=== PATIENT | female | born 1975 | race Caucasian/White ===

== ENCOUNTER → 2017-05-23 | Outpatient (CLI) | payer OTHER | END | disposition home or self-care (01) | LOC: C.LABBFT 15:21 | PROVIDERS: ATTEND Nurse Practitioner | DX: R39.9 Unspecified symptoms and signs involving the genitourinary system (principal) ==

== ENCOUNTER → 2017-05-30 | Outpatient (CLI) | payer OTHER ==
[2017-05-30 12:46] LABS: BLOOD UREA NITROGEN 12 mg/dl (7-18); CALCIUM 8.8 mg/dl (8.5-10.1); CARBON DIOXIDE 25 mmol/L (21-32); GLUCOSE 86 mg/dl (70-99); POTASSIUM 4.1 mmol/L (3.5-5.1); SODIUM 138 mmol/L (136-145)
[2017-05-30 12:56] LABS: CHOLESTEROL 168 mg/dl (0-200); LDL CHOLESTEROL CALCULATED 108 mg/dl
== END | disposition home or self-care (01) ==
LOC: C.LABBFT 09:00
PROVIDERS: ATTEND Nurse Practitioner
DX: E55.9 Vitamin D deficiency, unspecified (principal); Z13.220 Encounter for screening for lipoid disorders; Z13.228 Encounter for screening for other metabolic disorders; R53.83 Other fatigue

== ENCOUNTER → 2017-06-14 | Outpatient (CLI) | payer OTHER | END | disposition home or self-care (01) | LOC: C.LABSPEC 13:37 | PROVIDERS: ATTEND Physician Assistant | DX: N89.8 Other specified noninflammatory disorders of vagina (principal) ==

== ENCOUNTER → 2017-07-26 | Outpatient (CLI) | payer OTHER ==
--- NOTE | 2017-07-28 07:48 | MAMMOGRAPHY REPORT ---
BILATERAL FIRST EVER DIGITAL SCREENING MAMMOGRAM TOMOSYNTHESIS WITH CAD: 07/26/2017 CLINICAL HISTORY: Baseline examination. TECHNIQUE: Breast tomosynthesis in addition to standard 2D mammography was performed. Current study was also evaluated with a Computer Aided Detection (CAD) system. COMPARISON: No prior exams were available for comparison. BREAST COMPOSITION: The tissue of both breasts is almost entirely fatty. FINDINGS: No suspicious mass, architectural distortion or cluster of microcalcifications is seen. IMPRESSION: ACR BI-RADS CATEGORY 1: NEGATIVE There is no mammographic evidence of malignancy. A 1 year screening mammogram is recommended. The pa tient will receive written notification of the results. Approximately 10% of breast cancers are not detected with mammography. A negative mammographic report should not delay biopsy if a clinically suggestive mass is present. Consuelo richmond/pratibha:07/26/2017 16:30:50 [employer] Shop Supervisor: Kelly KIDD([place])([place]), [facility] letter sent: Normal 1/2 BI-RADS Code: ACR BI-RADS Category 1: Negative
== END | disposition home or self-care (01) ==
LOC: C.MAMM 15:04
PROVIDERS: ATTEND Obstetrics & Gynecology
DX: Z12.31 Encounter for screening mammogram for malignant neoplasm of breast (principal)

== ENCOUNTER → 2017-09-05 | Outpatient (CLI) | payer OTHER | END | disposition home or self-care (01) | LOC: C.PAPS 12:43 | PROVIDERS: ATTEND Nurse Practitioner | DX: Z12.4 Encounter for screening for malignant neoplasm of cervix (principal) ==

== ENCOUNTER → 2017-09-12 | Outpatient (CLI) | payer OTHER ==
--- NOTE | 2017-09-12 09:15 | DIAGNOSTIC IMAGING REPORT ---
PELVIC COMPLETE NON OB HISTORY: 42 years-old Female N92.0 Menorrhagia with regular cycle symptoms are acute in nature. COMPARISON: CT abdomen and pelvis 01/18/2007 TECHNIQUE: Multiple real-time sonographic images of the deep pelvic structures were obtained transabdominally and transvaginally assessing grayscale appearance, color and spectral flow FINDINGS: TRANSABDOMINAL: Anteflexed uterus measures 9.4 x 5.9 x 5.9 cm. Endometrium measures 0.7 cm. Focal area of decreased echogenicity within the uterine fundus suggesting uterine fibroid. Left ovary measures 4.0 x 2.7 x 2.6 cm demonstrates arterial inflow and venous outflow. Follicles of the left ovary are noted with a 1.4 cm dominant follicle noted. Right ovary obscured by bowel gas. TRANSVAGINAL: Hypoechoic heterogenous structure of the mid myometrial uterus anteriorly measures up to 1.1 cm with internal vascularity suggesting fibroid. 1.1 cm fundal fibroid is noted within the proximity to the fundal endometrium. Ovaries are not seen transvaginally. No significant free pelvic fluid. IMPRESSION: 1. Fibroid uterus with 1.1 cm fundal leiomyoma within close proximity to the adjacent endometrium suggesting a sub-endometrial or myometrial location. 2. 1.4 cm dominant left ovarian follicle without evidence of ovarian torsion. 3. Nonvisualization of the right ovary. The above report was generated using voice recognition software. It may contain grammatical, syntax or spelling errors. Electronically signed by: Damaso Frias M.D. 09/12/2017 9:14 AM Dictated Date/Time: 09/12/2017 8:23 AM
== END | disposition home or self-care (01) ==
LOC: C.ULTR 07:34
PROVIDERS: ATTEND Nurse Practitioner
DX: D25.9 Leiomyoma of uterus, unspecified (principal); N92.0 Excessive and frequent menstruation with regular cycle

== ENCOUNTER → 2017-12-09 | Outpatient (CLI) | payer OTHER ==
[~2017-12-09] MED LIST: FEXO5TAB2 PO; HYDR-5688 PO; IBUP-103 PO
== END | disposition home or self-care (01) ==
LOC: C.LABSPEC 13:38
PROVIDERS: ATTEND Obstetrics & Gynecology
DX: N76.0 Acute vaginitis (principal)

== ENCOUNTER 2019-07-02 08:08 | Observation (INO) ==
--- NOTE | 2019-06-08 13:57 | PAT Medication Instructions ---
Medication Instructions Date of Service June 08, 2019 Home Medications lisinopril 10 mg tablet 10 mg PO QAM dicyclomine 10 mg capsule 10 mg PO TID PRN omeprazole magnesium 20 mg tablet,delayed release 20 mg PO QAM fexofenadine-pseudoephedrine ER 180 mg-240 mg tablet,ext.release 24 hr 1 tab PO QAM DO NOT take the morning of surgery lisinopril 10 mg tablet 10 mg PO QAM dicyclomine 10 mg capsule 10 mg PO TID PRN fexofenadine-pseudoephedrine ER 180 mg-240 mg tablet,ext.release 24 hr 1 tab PO QAM Take morning of surgery With a small sip of water, OTHERWISE NOTHING TO EAT OR DRINK AFTER MIDNIGHT: omeprazole magnesium 20 mg tablet,delayed release 20 mg PO QAM Other Notes If you have any questions please call us at [phone] or [phone] or [phone] or [phone]
--- NOTE | 2019-06-11 11:42 | Anesthesiology Consultation ---
Date of Service June 11, 2019 Assessment & Plan (1) Encounter for pre-operative examination: - Check test AM DOS Chart Review Chart Review: Acceptable Risk for Surgery and Patient seen in Pre Admission Testing Teaching & Discussion Pre-Anesthesia Teaching/Discussion Notes: Instructed NPO after midnight before surgery,except medications with 15 cc of water. Medication instructions provided according to the PAT guidelines. History Surgery Operation Date: 07/02/19 11:35 Proposed Procedures p Robotic Total Laparoscopic Hysterectomy - Aryan Baldwin MD, FACOG Height/Weight Height: 5 ft 7 in Weight: 134.5 kg Allergies Allergy/AdvReac Type Severity Reaction Status Date / Time amoxicillin Allergy Intermediate Rash Verified 06/11/19 10:55 Penicillins Allergy Intermediate Rash Verified 06/11/19 10:55 miconazole Allergy Mild Redness, Verified 06/11/19 13:09 [From Neosporin AF] pruritus Sulfa (Sulfonamide Allergy Unknown Rash Verified 06/11/19 13:09 Antibiotics) ciprofloxacin [From Cipro] AdvReac Mild GI upset Verified 06/11/19 13:09 clindamycin AdvReac Mild N/V Verified 06/11/19 13:09 Medications Home Medications Medication Instructions Recorded Confirmed Last Taken lisinopril 10 mg tablet 10 mg PO QAM #30 tab 12/04/18 06/11/19 Unknown dicyclomine 10 mg capsule 10 mg PO TID PRN #90 cap 01/02/19 06/11/19 Unknown omeprazole magnesium 20 mg 20 mg PO QAM 01/02/19 06/11/19 Unknown tablet,delayed release fexofenadine-pseudoephedrine ER 1 tab PO QAM 05/28/19 06/11/19 Unknown 180 mg-240 mg tablet,ext.release 24 hr Past Medical History Medical History Abnormal uterine bleeding (AUB) Anemia Environmental allergies Gastroesophageal reflux disease controlled Hypertension Irritable bowel syndrome Morbid obesity Recurrent UTI Exercise / Class Metabolic Activity III < 4 Walking/Shop/Light housework Past Family History Family History Father Asthma Heart disease Diabetes Hypertension Kidney disease Prostate cancer Mother Diabetes Hypertension Neoplasm of cervix Grandmother (Maternal) Uterine cancer Bladder cancer Grandfather (Paternal) Myocardial infarction Past Surgical History Surgical History History of bladder surgery bladder stone removal (2000) History of wisdom tooth extraction Past Anesthesia History No Hx of Anesthesia Complications (except PONV) and No Family Hx of Anesthesia Complications History of PONV History of PONV and Hx of Motion Sickness Social History Smoking Status: Never smoker Do You Dip or Chew Tobacco: No Hx Alcohol Use: Yes alcohol intake frequency: holidays/special occasions only Hx Substance Use: No substance use type: does not use Review of Systems Reflux controlled. Seasonal allergies. Patient denies chest pain, shortness of breath, wheezing, palpitations. Physical Exam Vital Signs VITALS BP 114/72 P 68 TEMP 98.3 SP02 96%RA RESP 18 PHYSICAL Full neck and c-spine range of motion. Full TMJ range of motion. TMD 3.5 finger breaths Mallampati Score 2 Dentition: missing molars, crowns on molars Lungs: clear throughout to auscultation Cardiac: regular rate and rhythm, no murmurs noted Spine: normal Carotid arteries: negative bruit Extremities: no edema Testing Laboratory Results 06/11/19 11:55 06/11/19 11:55 Blood Type A Positive 06/11/19 11:55 Antibody Screen NEGATIVE 06/11/19 11:55 Electrocardiogram Date: 12/28/18 SR at 73bpm. *unconfirmed report*
[2019-06-11 12:32] LABS: Basophils # (auto) 0.03 K/uL (0-0.2); Basophils % (auto) 0.4 %; Eosinophils % (auto) 1.4 %; Hematocrit (blood only) 35.5 % (37-47); Hemoglobin 11.8 g/dL (12.0-16.0); Immature Granulocytes # (auto) 0.01 K/uL (0.00-0.02); Immature Granulocytes % (auto) 0.1 %; Lymphocytes # (auto) 2.15 K/uL (1.2-3.4); Lymphocytes % (auto) 31.1 %; Mean Corpuscular Hemoglobin 29.1 pg (25-34); Mean Corpuscular Hgb Conc 33.2 g/dL (32-36); Mean Corpuscular Volume 87.7 fL (80-100); Mean Platelet Volume 10.6 fL (7.4-10.4); Monocytes # (auto) 0.46 K/uL (0.11-0.59); Monocytes % (auto) 6.6 %; Neutrophils # (auto) 4.17 K/uL (1.4-6.5); Neutrophils % (auto) 60.4 %; Platelet Count 288 K/uL (130-400); RDW Coefficient of Variation 13.7 % (11.5-14.5); RDW Standard Deviation 44.4 fL (36.4-46.3); Red Blood Count 4.05 M/uL (4.2-5.4); White Blood Count 6.92 K/uL (4.8-10.8)
[2019-06-11 12:46] LABS: Calcium 8.6 mg/dl (8.5-10.1); Creatinine Clr Calc Pharmacy 151.3 ml/min; Est GFR (African American) 123.3; Est GFR (Non-African American) 106.4; Potassium 4.1 mmol/L (3.5-5.1)
[~2019-07-02 08:08] MED LIST changes: +CIPROFLOXACIN / D5W 400 MG/200 ML BAG IV SCH; -FEXO5TAB2 PO; -HYDR-5688 PO; -IBUP-103 PO; +LACTATED RINGER'S 1,000 ML IV SCH; +LR 15ML/HR IV SCH; +metroNIDAZOLE 500 MG/100 ML BAG IV SCH
[2019-07-02] MEDS ORDERED: ONDANSETRON INJ 2 MG/ML 2 ML VIAL ONE (08:42)
[2019-07-02] MEDS ORDERED: PROPOFOL IV EMULSION 10 MG/ML 20 ML VIAL IV ONE (08:42)
[2019-07-02] MEDS ORDERED: LIDOCAINE HCL 2% 2 ML VIAL/AMP(20MG/ML) INFIL ONE (08:42)
[2019-07-02] MEDS ORDERED: DEXAMETHASONE SOD INJ 4 MG/ML VIAL ONE (08:42)
[2019-07-02] MEDS ORDERED: fentaNYL citrate 100 MCG/2 ML VIAL ONE ×2 (08:42→08:43)
[2019-07-02] MEDS ORDERED: MIDAZOLAM HCL 1 MG/ML 2ML VIAL ONE (08:43)
--- NOTE | 2019-07-02 09:33 | History & Physical Bridge Note ---
Date of Service July 02, 2019 History & Physical Bridge Note I have examined the patient, reviewed the History & Physical and in the interval since the performance of the History & Physical I have noted the following changes of clinical significance: no changes noted
[2019-07-02] MEDS ORDERED: BUPIVACAINE 0.5 % 5 MG/1 ML MPF 30ML VIAL ONE (09:38)
[2019-07-02] MEDS ORDERED: ISOSULFAN BLUE 10 MG/ML VIAL 5 ML ONE (09:38)
[2019-07-02] MEDS ORDERED: METOCLOPRAMIDE HCL INJ 5 MG/ML 2 ML VIAL IV PRN (09:51)
[2019-07-02] MEDS ORDERED: ONDANSETRON INJ 2 MG/ML 2 ML VIAL IV PRN ×2 (09:51→13:31)
[2019-07-02] MEDS ORDERED: ATROPINE SULFATE 0.1 MG/ML 10ML SYR IV PRN (09:51)
[2019-07-02] MEDS ORDERED: PROMETHAZINE HCL 12.5 MG in SODIUM CHLORIDE 0.9% 50 ML IV PRN ×2 (09:51→13:31)
[2019-07-02] MEDS ORDERED: ePHEDrine sulfate 50 MG/ML AMP IV PRN (09:51)
[2019-07-02] MEDS ORDERED: HYDROmorphone INJ 2 MG/ML SYR/VIAL IV PRN (09:51)
[2019-07-02] MEDS ORDERED: HYDROmorphone INJ 2 MG/ML SYR/VIAL ONE (09:58)
[2019-07-02] MEDS ORDERED: ACETAMINOPHEN 1000 MG/100 ML IV IV ONE (09:58)
[2019-07-02] MEDS ORDERED: NEOSTIGMINE METHYLSULFATE 5 MG/5 ML SYR ONE (10:58)
[2019-07-02] MEDS ORDERED: GLYCOPYRROLATE 0.2 MG/ML VIAL ONE (10:58)
[2019-07-02] MEDS ORDERED: ROCURONIUM BROMIDE 10 MG/ML 5 ML VIAL ONE (10:58)
[2019-07-02] MEDS ORDERED: KETOROLAC 30 MG/ML VIAL ONE (10:58)
[2019-07-02] MEDS ORDERED: TISSEEL FIBRIN SEALANT 4ML TOP ONE (11:38)
--- NOTE | 2019-07-02 12:04 | Operative Report ---
PG Post Operative Report Pre & Post Diagnosis Operation Date: 07/02/19 09:30 Pre-Op Diagnosis: Abnormal Uterine Bleeding Post-Op Diagnosis: Abnormal Uterine Bleeding I identified the patient and participated in the time-out.: Yes Procedure Operation Date: 07/02/19 09:30 Actual Procedures p Robotic Total Laparoscopic Hysterectomy, bilateral salpingectomy, Cystoscopy(Not Applicable) - Aryan Baldwin MD, FACOG Surgeon Aryan Baldwin MD, FACOG Clinical Academic Allergist none Estimated Blood Loss 30 Findings Consistent with Post-Op Diagnosis Specimens uterus, cervix, tubes Description of Procedure Patient was given a general anesthetic, prepped and draped in dorsal lithotomy position in yellow fin cony stirrups. Care was taken to position the legs and arms properly with no excess pressure on any area. Pre-operative antibiotics were given and SCDs applied earlier. Junior catheter was inserted into her bladder, V-Care manipluator was placed in the uterus and sutured in place. Gloves were changed and then a supra-umbilical incision was made with scalpel, using Yasmeen technique, we dissected through the subcutaneous fat, fascia, split the rectus muscles and then entered the peritoneal cavity.. Blunt tip Yasmeen Trochar then inserted and balloon inflated to stabilize the port. CO2 gas was then used to insufflate the peritoneal cavity. Findings. normal pelvis and adnexa, appendix Deep trendelenberg position was obtained. 2 robotic ports were then placed, one on the left, one on the right side under direct visualization. 11mm bladeless accessory port placed in left upper quadrant under direct visualization. Robot docked. Arm #1 Monopolar dinh, arm #2 Bipolar [place] grasper. Fallopian tubes were identified and removed with the monoplar dinh and removed thru the accessory port. Ureter was identified on each side and followed a normal course. Distal to the left ovary, the blood supply was coagulated with the bipolar [place] and then cut with Dinh. We were well away from the ureter. Round ligament was coagulated and then cut. Uterine vessels were then skeletonized, bladder flap was sharply dissected away with dinh. Uterine vessels were then coagulated close to the cervix staying away from the left ureter. Vessels then cut. The exact same process was repeated on the right side taking note of the location of the right ureter at all times. Colpotomy was then performed with the monopolar dinh, once completed, the specimen was removed through the vagina. A sponge in a glove was then placed in the vagina to maintain pneumoperitoneum. Instrument exchange then occurred. Arm #1 became the MANNY needle class b truck driver, Arm # 2 became the Cobra Grasper. 12 inch 2-0 V-Lock 90 day suture was placed through the accessory port. Cuff was closed from left to right, then back taking at least 1cm full thickness bites of vaginal mucosa. Suture was cut so there was no tail, needle removed through the accessory port. Sponge removed from the vagina and seal air tight. I noticed a break in the suture at this point, so we re-sewed the cuff with another 2-0 90 day V-lock suture. Seal was airtight Generous irrigation and suction, hemostasis excellent, Tisseal applied to pedicles. Cystoscopy performed and no injury to the bladder, no sutures noted, good strong jets of blue colored dye were noted from both right and left ureter openings. Cystoscope removed and a new junior catheter placed. Robot undocked, instruments, ports removed. gas allowed to escape. Incisions injected with Marcaine, fascia closed in the umbilical and a deep stitch into the accessory port with 0-Vicryl. 4-0 subcuticular skin closures on all incisions, dermabond applied. Sponge and instrument counts correct. I attest to the content of the Intraoperative Record and any orders documented therein. Any exceptions are noted below.
[2019-07-02] MEDS: fentaNYL citrate 100 MCG/2 ML VIAL IV PRN ×4 (12:30→12:45)
[2019-07-02] MEDS ORDERED: IBUPROFEN 600 MG TAB PO PRN (13:31)
[2019-07-02] MEDS ORDERED: bisacodyL 10 MG SUPP PR PRN (13:31)
[2019-07-02] MEDS ORDERED: OXYCODONE/ACETAMINOPHEN 5mg/325mg TAB PO PRN ×2 (13:31)
[2019-07-02] MEDS ORDERED: MEPERIDINE HCL 50 MG/ML CARP IV PRN (13:31)
[2019-07-02] MEDS ORDERED: MAGNESIUM HYDROXIDE SUSP 30 ML UDC PO PRN (13:31)
[2019-07-02] MEDS ORDERED: SIMETHICONE 80 MG CHEW PO PRN (13:31)
[2019-07-02] MEDS ORDERED: LACTATED RINGER'S 1,000 ML IV SCH (13:31)
[2019-07-02] MEDS ORDERED: KETOROLAC 30 MG/ML VIAL IV PRN (13:31)
[2019-07-02] MEDS ORDERED: ACETAMINOPHEN 325 MG TAB PO PRN (13:31)
[2019-07-02] MEDS ORDERED: ZOLPIDEM TARTRATE 5 MG TAB PO PRN (13:31)
[2019-07-02] MEDS ORDERED: DICYCLOMINE HCL 10 MG CAP PO PRN (14:00)
--- NOTE | 2019-07-02 14:04 | Anesthesiology Progress Note ---
Date of Service July 02, 2019 Anesthesia Post Procedure Vital Signs Vital Signs: Temp Pulse Pulse Resp BP BP Pulse Ox 07/02/19 12:55 36.3 C L 58 L 14 117/59 L 97 07/02/19 12:45 51 L 14 115/56 L 97 07/02/19 12:35 55 L 13 116/58 L 100 07/02/19 12:25 57 L 16 105/52 L 100 07/02/19 12:15 36.0 C L 60 16 106/32 L 98 07/02/19 08:58 36.6 C 74 16 135/61 100 Pain Intensity Lower Abdomen: Pain Intensity: 4 Transfer of Care Handoff Completed per policy Notes Mental Status: alert / awake / arousable and participated in evaluation Patient Amnestic to Procedure: Yes Nausea / Vomiting: adequately controlled Pain: adequately controlled Airway Patency, RR, SpO2: stable & adequate BP & HR: stable & adequate Hydration State: stable & adequate Anesthetic Complications: no major complications apparent
[2019-07-02] MEDS ORDERED: DOCUSATE SODIUM 100 MG CAP PO SCH (21:00)
[2019-07-03] MEDS ORDERED: PANTOprazole 40 MG TAB PO SCH (09:00)
[2019-07-03] MEDS ORDERED: lisinopriL 10 MG TAB PO SCH (09:00)
--- NOTE | 2019-07-04 07:26 | Discharge Summary ---
Date of Service July 04, 2019 Admission HPI Per Admitting Provider Patient had a TLH for menorrhagia, she was discharged same day Discharge Data Procedures Performed Operation Date: 07/02/19 09:30 Actual Procedures p Robotic Total Laparoscopic Hysterectomy, bilateral salpingectomy, (Not Applicable) - Aryan Baldwin MD, FACOG s Cystoscopy(Not Applicable) - Aryan Baldwin MD, FACOG Hospital Course (1) Menorrhagia with regular cycle: Discussed no heavy lifting and no intercourse at this time and that we will reassess at 6 weeks from surgery. Call if any problems or bleeding Normal TLH discharged a few hours after surgery Coding Level of Care Code None Diagnoses Menorrhagia with regular cycle N92.0
== END 2019-07-02 18:15 | disposition home or self-care (01) ==
LOC: ASU 08:08 → 4N 08:08